=== PATIENT | female | born 1980 | race Caucasian/White ===

== ENCOUNTER 2016-05-17 14:36 | Emergency (ER) | payer SELFPAY ==
[~2016-05-17] VITALS: Ht 162.6 cm; Wt 68.0 kg
[~2016-05-17 14:36] MED LIST: CIPR250T2 PO
[2016-05-17 14:37] VITALS: BP 179/68; PULSE 98; RESP 18; TEMP 98.5; O2SAT 98
--- NOTE | 2016-05-17 16:02 | PD ---
HPI Chief Complaint: ENT Complaint Time Seen by Provider: 16:02 Travel History International Travel<30 days: No Contact w/Intl Traveler<30days: No History of Present Illness HPI 36-year-old female presents to the emergency department with complaint of sore throat that she woke up this morning. Denies fever, chills, nausea, vomiting. Denies nasal congestion, ear pain, cough. Denies lump in throat, difficulty swelling, unusual drooling. Reports painful swallowing. Reports voice is hoarse. Has not taken any medications or tried any treatments to alleviate her symptoms. No one else with similar symptoms. No known allergies. Takes Suboxone daily. Does not have an established primary care provider. No other modifying factors or associated signs and symptoms. PFSH Past Medical History Hx Anticoagulant Therapy: No Anemia: Yes Bipolar Disorder: Yes Anxiety: Yes Depression: Yes Cardiovascular Problems: No High Cholesterol: Yes Chemotherapy: No Cerebrovascular Accident: No Diabetes: No Diminished Hearing: No Hepatitis: Yes (hep c) Kidney Stones: Yes Respiratory: No Immunizations Current: Yes ?: Not LMP: 05/12/16 : 1 Para: 0 Past Surgical History Hysterectomy: No Other Surgery: Yes (bunion removed @ age 16) Social History Alcohol Use: No Tobacco Use: Yes (occassional) Substance Use: Yes (REPORTS 5-6 TIMES USE OF METH) Allergies-Medications (Allergen,Severity, Reaction): Coded Allergies: No Known Allergies (Unverified , 05/17/16) Reported Meds & Prescriptions Reported Meds & Active Scripts Active Ibuprofen 800 Mg Tab 800 Mg PO Q6HR PRN Magic Mouthwash Pediatric/Adult Liq (Lidocaine/Diphenhydr/Alum/Mg/Simeth) 60 Ml Susp 5 Ml SWISH-SWAL ACHS PRN Each 5mL contains: Diphenydramine 4.5mg, Viscous Lidocaine 2% 10mg, Maalox Advanced Regular Strength 2.7ml Ciprofloxacin Hcl (Ciprofloxacin HCl) 250 Mg Tab 250 Mg PO BID Reported Suboxone Sublingual Film (Buprenorphine-Naloxone Sublingual Film) 8-2 Mg Film 1 Film SL DAILY Unique ID number required: Review of Systems Except as stated in HPI: all other systems reviewed are Neg Physical Exam Narrative GENERAL: Well-nourished, well-developed feel patient, in no acute distress; afebrile, nontoxic-appearing SKIN: Warm and dry. No rash. HEAD: Atraumatic. Normocephalic. EYES: Pupils equal and round at 3 mm with brisk reaction. No scleral icterus. No injection or drainage. PERRLA. ENT: Mucosa pink and dry. Oropharynx with erythema; without exudate and edema. No Uvular edema. No uvular, palatal, or tonsillar deviation. Airway patent. Voice is hoarse. EARS: Bilateral pinnae and external canals appear within normal limits. Bilateral tympanic membranes without erythema, dullness or perforation.. NECK: Trachea midline. No anterior cervical lymphadenopathy; tenderness on palpation. CARDIOVASCULAR: Regular rate and rhythm. No murmur appreciated. RESPIRATORY: No accessory muscle use. Clear to auscultation. Breath sounds equal bilaterally. GASTROINTESTINAL: Abdomen soft, non-tender, nondistended. Hepatic and splenic margins not palpable. Bowel sounds are active 4 quadrants. MUSCULOSKELETAL: No obvious deformities. No clubbing. No cyanosis. No edema. NEUROLOGICAL: Awake and alert. Oriented 3. No obvious cranial nerve deficits. Motor grossly within normal limits. Normal speech. Moves all extremities. PSYCHIATRIC: Appropriate mood and affect; insight and judgment normal. Data Data Last Documented VS Vital Signs Date Time Temp Pulse Resp B/P Pulse Ox O2 Delivery O2 Flow Rate FiO2 05/17/16 14:37 98.5 98 18 179/68 98 Room Air Orders Group A Rapid Strep Screen (05/17/16 16:02) Strep Culture (Group A) (05/17/16 16:20) [facility] Medical Decision Making Medical Screen Exam Complete: Yes Emergency Medical Condition: Yes Medical Record Reviewed: Yes Differential Diagnosis Viral pharyngitis, laryngitis, strep throat pharyngitis, less likely peritonsillar abscess Narrative Course 36-year-old female with sore throat. Afebrile, nontoxic appearing. Denies fever, chills, nausea, vomiting at home. Denies lump in throat, difficulty swallowing, unusual drooling. Denies cough. Rapid strep ordered. 1658: Patient wanted to leave prior to rapid strep results. She said she doesn 't think she has strep throat. She thinks her symptoms are related to yelling a lot last night and that she only wanted a work note. Patient discharged home at this time. Patient is medically cleared and stable for discharge. Discussed reasons to return to the emergency department. Instructed patient to follow up with primary care provider. Patient agrees with treatment plan. The patients vital signs are stable and the patient is stable for outpatient follow- up and treatment. Patient discharged home, stable and in no acute distress. Diagnosis Primary Impression: Viral pharyngitis Referrals: Primary Care Physician Patient Instructions: General Instructions, Pharyngitis (ED) Departure Forms: Tests/Procedures, Work Release Enter return to work date: May 18, 2016 Additional Instructions: Get plenty of sleep/rest Rest your voice Drink plenty of fluids to prevent dehydration Use warm saltwater gargles to soothe throat pain Use an air humidifier/turn off ceiling fans Use throat lozenges as needed for sore throat Use ibuprofen or acetaminophen as needed to relieve pain and fever Follow-up with your primary care provider within 2-4 days Return immediately to the emergency department with worsening of symptoms Med/Other Pt SpecificInfo: Prescription(s) given Scripts Ibuprofen 800 Mg [id number] Mg PO Q6HR PRN (PAIN) #30 TAB Ref 0 Prov:Angi Gamino 05/17/16 Wsnrgkrrcopdjxp-Dfzeeobbe-Oim-Alum-Simeth Liq (Magic Mouthwash Pediatric/Adult Liq)60 Ml Susp5 Ml SWISH-SWAL ACHS PRN (SORE THROAT) #60 ML Ref 0 Each 5mL contains: Diphenydramine 4.5mg, Viscous Lidocaine 2% 10mg, Maalox Advanced Regular Strength 2.7ml Prov:Angi Gamino 05/17/16 Disposition: 01 DISCHARGE HOME Condition: Stable Angi Gamino May 17, 2016 16:02
[2016-05-17] MEDS ORDERED: IBUP800T23 PO (16:04)
[2016-05-17] MEDS ORDERED: MAGICPED SWISH-SWAL (16:04)
[2016-05-17] MEDS ORDERED: SUBO8MIS SL (16:30)
== END 2016-05-17 17:02 | disposition home or self-care (01) ==
LOC: NEPB 14:36
DX: J02.9 Acute pharyngitis, unspecified (principal); B97.89 Other viral agents as the cause of diseases classified elsewhere; E78.00 Pure hypercholesterolemia, unspecified; Z72.0 Tobacco use; Z86.2 Personal history of diseases of the blood and blood-forming organs and certain disorders involving the immune mechanism; Z86.59 Personal history of other mental and behavioral disorders; Z86.19 Personal history of other infectious and parasitic diseases; Z87.442 Personal history of urinary calculi
CPT/HCPCS: 87081; 87880; 99283

== ENCOUNTER 2016-08-22 19:14 | Emergency (ER) | payer OTHER ==
[~2016-08-22] VITALS: Ht 162.6 cm; Wt 76.0 kg
[~2016-08-22 19:14] MED LIST changes: +IBUP800T23 PO; +MAGICPED SWISH-SWAL; +SUBO8MIS SL
[2016-08-22 19:16] VITALS: BP 139/74; PULSE 88; RESP 16; TEMP 98.4; O2SAT 98
--- NOTE | 2016-08-22 20:43 | PD ---
HPI Chief Complaint: Related Problem Time Seen by Provider: 20:43 Travel History International Travel<30 days: No Contact w/Intl Traveler<30days: No Traveled to known affect area: No History of Present Illness HPI 36-year-old female came to the emergency room with history of vaginal bleed since yesterday. says she has been spotting and it's getting more in attendance. Patient is and her LMP was July 10. She has not had any ultrasound to confirm any neutral yet. Patient is A1. Her first was ectopic. No history of vomiting or diarrhea. Vital signs otherwise stable. She does not appear to be in any severe discomfort. [facility] Past Medical History Narrative Medical List of her past medical, surgical, social and family history reviewed from the nursing note. Hx Anticoagulant Therapy: No Anemia: Yes Bipolar Disorder: Yes Anxiety: Yes Depression: Yes Cardiovascular Problems: No High Cholesterol: Yes Chemotherapy: No Cerebrovascular Accident: No Diabetes: No Diminished Hearing: No Hepatitis: Yes (hep c) Kidney Stones: Yes Respiratory: No Immunizations Current: Yes Tetanus Vaccination: Unknown Influenza Vaccination: No ?: LMP: 5-6 WEEKS : 1 Para: 0 Past Surgical History Hysterectomy: No Other Surgery: Yes (bunion removed @ age 16) Social History Alcohol Use: No Tobacco Use: Yes (occassional) Substance Use: Yes (REPORTS 5-6 TIMES USE OF METH) Allergies-Medications (Allergen,Severity, Reaction): Coded Allergies: No Known Allergies (Unverified , 08/22/16) Comments No known drug allergies. Reported Meds & Prescriptions Reported Meds & Active Scripts Active Vitamins 0.8 mg ( Multivit-Min W/Fe-FA) 1 Tab Tab 1 Tab PO DAILY 30 Days Reported Suboxone Sublingual Film (Buprenorphine-Naloxone Sublingual Film) 8-2 Mg Film 1 Film SL DAILY Unique ID number required: Narrative Medication List of her home medications reviewed from the nursing note. Review of Systems Except as stated in HPI: all other systems reviewed are Neg Physical Exam Narrative GENERAL: Awake, alert, no obvious distress SKIN: Focused skin assessment warm/dry. HEAD: Atraumatic. Normocephalic. EYES: Pupils equal and round. No scleral icterus. No injection or drainage. ENT: No nasal bleeding or discharge. Mucous membranes pink and moist. NECK: Trachea midline. No JVD. CARDIOVASCULAR: Regular rate and rhythm. No murmur appreciated. RESPIRATORY: No accessory muscle use. Clear to auscultation. Breath sounds equal bilaterally. GASTROINTESTINAL: Abdomen soft, non-tender, nondistended. Hepatic and splenic margins not palpable. MUSCULOSKELETAL: No obvious deformities. No clubbing. No cyanosis. No edema. NEUROLOGICAL: Awake and alert. No obvious cranial nerve deficits. Motor grossly within normal limits. Normal speech. PSYCHIATRIC: Appropriate mood and affect; insight and judgment normal. Data Data Last Documented VS Vital Signs Date Time Temp Pulse Resp B/P Pulse Ox O2 Delivery O2 Flow Rate FiO2 08/22/16 20:32 16 08/22/16 19:16 98.4 88 139/74 98 Orders Beta Hcg (Quant/Titer) (08/22/16 21:47) Complete Blood Count With Diff (08/22/16 21:47) Basic Metabolic Panel (Bmp) (08/22/16 21:47) Complete Rh (08/22/16 21:47) Ua Includes Microscopic (08/22/16 21:47) Ed Urine Pregnancytest Poc (08/22/16 21:47) Rhogam Only (08/23/16 00:23) Blood Product Administration .UPON TRANSFUSION (08/23/16 00:23) Sodium Chlor 0.9% 250 Ml Inj (Ns 250 Ml (08/23/16 00:30) Labs Laboratory Tests Test 08/22/16 08/22/16 08/23/16 21:45 22:30 00:23 White Blood Count 9.8 TH/MM3 Red Blood Count 4.49 MIL/MM3 Hemoglobin 13.7 GM/DL Hematocrit 40.0 % Mean Corpuscular Volume 88.9 FL Mean Corpuscular Hemoglobin 30.5 PG Mean Corpuscular Hemoglobin 34.3 % Concent Red Cell Distribution Width 13.3 % Platelet Count 281 TH/MM3 Mean Platelet Volume 7.6 FL Neutrophils (%) (Auto) 65.9 % Lymphocytes (%) (Auto) 25.2 % Monocytes (%) (Auto) 6.2 % Eosinophils (%) (Auto) 1.9 % Basophils (%) (Auto) 0.8 % Neutrophils # (Auto) 6.4 TH/MM3 Lymphocytes # (Auto) 2.5 TH/MM3 Monocytes # (Auto) 0.6 TH/MM3 Eosinophils # (Auto) 0.2 TH/MM3 Basophils # (Auto) 0.1 TH/MM3 CBC Comment DIFF FINAL Differential Comment Urine Color RED Urine Turbidity HAZY Urine pH 5.5 Urine Specific [place] 1.021 Urine Protein 30 mg/dL Urine Glucose (UA) NEG mg/dL Urine Ketones NEG mg/dL Urine Occult Blood LARGE Urine Nitrite NEG Urine Bilirubin NEG Urine Urobilinogen LESS THAN 2.0 MG/DL Urine Leukocyte Esterase MOD Urine RBC /hpf Urine WBC 128 /hpf Urine WBC Clumps FEW Urine Squamous Epithelial 9 /hpf Cells Urine Bacteria OCC /hpf Urine Mucus FEW /lpf Sodium Level 138 MEQ/L Potassium Level 3.5 MEQ/L Chloride Level 103 MEQ/L Carbon Dioxide Level 28.0 MEQ/L Anion Gap 7 MEQ/L Blood Urea Nitrogen 14 MG/DL Creatinine 0.77 MG/DL Estimat Glomerular Filtration 84 ML/MIN Rate Random Glucose 80 MG/DL Calcium Level 8.5 MG/DL Human Chorionic Gonadotropin, 1743 MIU/ML Quant Blood Type O NEGATIVE Rho(D) Type NEGATIVE Blood Bank Comment MDM Medical Decision Making Medical Screen Exam Complete: Yes Emergency Medical Condition: Yes Medical Record Reviewed: Yes Differential Diagnosis Ectopic , threatened , implantation bleed Narrative Course 11:17 PM the bedside ultrasound was difficult but I was able to see and in the uterine . UA is positive for UTI. I'll give her dose of Macrobid. Her beta hCG Quant is low. Under the circumstances I will ask her to return in 48 hours to get the beta-hCG rechecked. Patient understands this plan. She'll be discharged home. 12:24 AM blood type was O-. Patient is given a dose of RhoGAM. Procedures Procedure Narrative Emergency Department Pelvic ultrasound was performed with patient consent. The curvilinear probe was used in the transverse and sagittal views within the suprapubic region revealing positive intrauterine . Only a gestational sac could be seen but no pole or heart beat. EKG Prior to Arrival: No Diagnosis Primary Impression: Threatened Additional Impressions: Vaginal bleeding First trimester Referrals: Primary Care Physician Additional Instructions: Please return to the ER in 48 hours to get repeat hCG count. No vaginal intercourse, tampon, douching or anything in the vagina until the bleeding stops. Drink lots of fluid. Do not lift anything heavy. Return to the ER earlier if symptoms worsen or any other new concerns. Med/Other Pt SpecificInfo: Prescription(s) given Scripts Multivit-Min W/Fe-FA ( Vitamins 0.8 mg)1 Tab Tab1 Tab PO DAILY 30 Days Prov:Katherine Young MD 08/22/16 Disposition: 01 DISCHARGE HOME Condition: Stable Katherine Young MD Aug 22, 2016 20:43
[2016-08-22 22:13] LABS: AUTOMATED NEUTROPHIL # 6.4 TH/MM3 (1.8-7.7); BASOPHIL # 0.1 TH/MM3 (0-0.2); BASOPHIL % 0.8 % (0.0-2.0); EOSINOPHIL # 0.2 TH/MM3 (0-0.4); EOSINOPHIL % 1.9 % (0.0-4.0); HEMO FLAGS DIFF FINAL; LYMPH % 25.2 % (9.0-44.0); LYMPHOCYTE # 2.5 TH/MM3 (1.0-4.8); MEAN CELL VOLUME 88.9 FL (80.0-100.0); MEAN CORPUSCULAR HEMOGLOBIN 30.5 PG (27.0-34.0); MEAN CORPUSCULAR HGB CONC 34.3 % (32.0-36.0); MONO % 6.2 % (0.0-8.0); NEUT % 65.9 % (16.0-70.0); PLATELET COUNT 281 TH/MM3 (150-450); RED BLOOD COUNT 4.49 MIL/MM3 (4.00-5.30); RED CELL DISTRIBUTION WIDTH 13.3 % (11.6-17.2); WHITE BLOOD COUNT 9.8 TH/MM3 (4.0-11.0)
[2016-08-22 22:21] LABS: BACTERIA, URINE OCC /hpf; BLOOD, URINE LARGE (NEG); GLUCOSE,URINE NEG (NEG); KETONE, URINE NEG (NEG); MUCUS URINE FEW /lpf (OCC); NITRITE,URINE NEG (NEG); PH, URINE 5.5 (5.0-8.5); SQUAMOUS EPITHELIAL CELL URINE 9 /hpf (0-5)
[2016-08-22 22:22] LABS: URINE COLOR RED (YELLW/STRAW)
[2016-08-22 22:46] LABS: POTASSIUM 3.5 MEQ/L (3.5-5.1)
[2016-08-22] MEDS ORDERED: PREN1TAB63 PO (23:22)
[2016-08-23] MEDS ORDERED: SODIUM CHLOR 0.9% 250 ML INJ 250 ML IV ONE (00:30)
== END 2016-08-23 01:00 | disposition home or self-care (01) ==
LOC: NEPD 19:14
DX: O20.0 Threatened abortion (principal); O26.851 Spotting complicating pregnancy, first trimester
CPT/HCPCS: 80048; 81001; 84702; 84703; 85025; 86901; 90384; 96372; J2790

== ENCOUNTER 2016-08-25 17:33 | Emergency (ER) | payer OTHER ==
[~2016-08-25 17:33] MED LIST changes: -CIPR250T2 PO; -IBUP800T23 PO; -MAGICPED SWISH-SWAL; +PREN1TAB63 PO
[2016-08-25 17:35] VITALS: BP 135/79; PULSE 97; RESP 20; TEMP 97.9; O2SAT 98
--- NOTE | 2016-08-25 18:16 | PD ---
HPI Chief Complaint: Related Problem Time Seen by Provider: 17:58 Travel History International Travel<30 days: No Contact w/Intl Traveler<30days: No Traveled to known affect area: No History of Present Illness HPI 36-year-old female complains of vaginal bleeding. Patient is 2 para 0 AB 1. Last menstruation period was July 10, 2016. Patient was seen in emergency room 3 days ago for pelvic pain and vaginal bleeding. Blood type was O-. Beta hCG 1743. Bedside ultrasound showed intrauterine . UA was positive for UTI. Patient was advised to have been beta hCG repeated in 48 hours. Patient states that she has intermittent pelvic pain and vaginal bleeding for the past several days. Patient states that she passed big blood clot today. Patient denies any pelvic pain. Patient denies any headache. Patient denies any chest pain or shortness of breath. Patient denies abdominal pain or pelvic pain. Patient denies any fever chills. Patient was given RhoGAM at last visit. PFSH Past Medical History Hx Anticoagulant Therapy: No Anemia: Yes Bipolar Disorder: Yes Anxiety: Yes Depression: Yes Cardiovascular Problems: No High Cholesterol: Yes Chemotherapy: No Cerebrovascular Accident: No Diabetes: No Diminished Hearing: No Hepatitis: Yes (hep c) Kidney Stones: Yes Respiratory: No Immunizations Current: Yes ?: Unknown LMP: end of June : 1 Para: 0 Past Surgical History Hysterectomy: No Other Surgery: Yes (bunion removed @ age 16) Social History Alcohol Use: No Tobacco Use: No Substance Use: No Allergies-Medications (Allergen,Severity, Reaction): Coded Allergies: No Known Allergies (Unverified , 08/22/16) Reported Meds & Prescriptions Reported Meds & Active Scripts Active Vitamins 0.8 mg ( Multivit-Min W/Fe-FA) 1 Tab Tab 1 Tab PO DAILY 30 Days Reported Suboxone Sublingual Film (Buprenorphine-Naloxone Sublingual Film) 8-2 Mg Film 1 Film SL DAILY Unique ID number required: Review of Systems General / Constitutional: No: Fever Eyes: No: Visual changes HENT: No: Headaches Cardiovascular: No: Chest Pain or Discomfort Respiratory: No: Shortness of Breath Gastrointestinal: No: Abdominal Pain Genitourinary: Positive: Vaginal Bleeding, No: Dysuria Musculoskeletal: No: Pain Skin: No Rash Neurologic: No: Weakness Psychiatric: No: Depression Endocrine: No: Polydipsia Hematologic/Lymphatic: No: Easy Bruising Physical Exam Narrative GENERAL: Well-nourished, well-developed patient. SKIN: Focused skin assessment warm/dry. HEAD: Normocephalic. EYES: No scleral icterus. No injection or drainage. NECK: Supple, trachea midline. No JVD or lymphadenopathy. CARDIOVASCULAR: Regular rate and rhythm without murmurs, gallops, or rubs. RESPIRATORY: Breath sounds equal bilaterally. No accessory muscle use. GASTROINTESTINAL: Abdomen soft, non-tender, nondistended. MUSCULOSKELETAL: No cyanosis, or edema. BACK: Nontender without obvious deformity. No CVA tenderness. INTERNET ASSESSOR exam: Patient has small amount of blood in the vaginal vault. No cervical motion tenderness. Uterus is nonenlarged with mild tenderness on palpation. No adnexal mass or tenderness. Data Data Last Documented VS Vital Signs Date Time Temp Pulse Resp B/P Pulse Ox O2 Delivery O2 Flow Rate FiO2 08/25/16 17:35 97.9 97 20 135/79 98 Room Air Orders Beta Hcg (Quant/Titer) (08/25/16 18:08) Iv Access Insert/Monitor (08/25/16 18:08) Urinalysis - C+S If Indicated (08/25/16 18:14) Us Pelvis (Ques Pr/Ect)W Trans (08/25/16 19:41) Urine Culture (08/25/16 19:00) Labs Laboratory Tests Test 08/25/16 08/25/16 18:20 19:00 Human Chorionic Gonadotropin, 1528 MIU/ML Quant Urine Color YELLOW Urine Turbidity CLEAR Urine pH 6.0 Urine Specific [place] 1.022 Urine Protein 30 mg/dL Urine Glucose (UA) NEG mg/dL Urine Ketones NEG mg/dL Urine Occult Blood LARGE Urine Nitrite NEG Urine Bilirubin NEG Urine Urobilinogen LESS THAN 2.0 MG/DL Urine Leukocyte Esterase MOD Urine RBC /hpf Urine WBC 10 /hpf Urine Squamous Epithelial 11 /hpf Cells Urine Bacteria OCC /hpf Microscopic Urinalysis Comment CULTURE INDICATED MDM Medical Decision Making Medical Screen Exam Complete: Yes Emergency Medical Condition: Yes Interpretation(s) 1939 PM. Beta hCG today 1528. Beta hCG 2 days ago with 1743. 2018 p.m. UA positive RBC, WBC and bacteria. 22:05 PM. Last Impressions Pelvis Ultrasound 08/25/161940 Signed Impressions: Service Date/Time: Thursday, August 25, 2016 21:01 - CONCLUSION: 1. Intrauterine but without evidence for heart rate. [place]-rump length measurements are characteristic of a 6 week 6 day gestation. Kamran Manuel MD Differential Diagnosis Differential diagnosis includes threatened AB, incomplete AB, completed AB, ectopic . Narrative Course 36-year-old female with vaginal bleeding. Patient was seen in emergency room 3 days ago pelvic pain and vaginal bleeding. Patient's blood type O-. Patient received RhoGAM 2 days ago. Diagnosis Primary Impression: Incomplete Patient Instructions: General Instructions Additional Instructions: Follow-up with local INTERNET ASSESSOR. Return if increased pelvic pain, excessive vaginal bleeding. Med/Other Pt SpecificInfo: No Change to Meds Scripts Acetaminophen-Codeine (Tylenol-Codeine #3)300-30 mg Tab1 Tab PO Q6HR PRN (PAIN SCALE 1 TO 10) #30 TAB Prov:Simon Pickering MD 08/25/16 Disposition: 01 DISCHARGE HOME Condition: Stable Simon Pickering MD Aug 25, 2016 18:16
[2016-08-25 19:27] LABS: BETA HCG QUANT 1528 MIU/ML (0-5)
[2016-08-25 19:50] LABS: BACTERIA, URINE OCC /hpf; BLOOD, URINE LARGE (NEG); COMMENT (UR) CULTURE INDICATED; CULTURE IF INDICATED CULTURE INDICATED; GLUCOSE,URINE NEG (NEG); KETONE, URINE NEG (NEG); NITRITE,URINE NEG (NEG); SQUAMOUS EPITHELIAL CELL URINE 11 /hpf (0-5); URINE COLOR YELLOW (YELLW/STRAW)
--- NOTE | 2016-08-25 21:55 | RADRPT ---
EXAM DATE/TIME: 08/25/2016 21:01 [facility] COMPARISON: No previous studies available for comparison. INDICATIONS : Bleeding with . LAB(S): Beta-hC MEDICAL HISTORY : . Hypercholesterolemia. Renal calculi. Previous ectopic. Bipolar disorder. Depression. Anxie ty. Hepatitis C. Anemia. SURGICAL HISTORY : Bunionectomy. ENCOUNTER: Initial ACUITY: 3 days PAIN SCORE: 0/10 LOCATION: Bilateral pelvis MEASUREMENTS: UTERUS: 8.9 x 5.9 x 5.0 cm ENDOMETRIAL STRIPE: >20 mm RIGHT OVARY: 2.4 x 1.7 x 1.0 cm LEFT OVARY: 3.1 x 2.0 x 1.7 cm FREE FLUID: No CROWN RUMP LENGTH: 0.91 cm = 6 WKS 6 DAYS FHR: Non visualized. BPM FINDINGS: There is an intrauterine with [place]-rump length measurements characteristic of a 6 week 6 d ay gestation the gestational sac size measurements characteristic of a five-week two-day . T here is no identifiable heart rate. [place] is visualized. No free fluid Right ovary is unremarkable. Probable 2 cm corpus luteum cyst left ovary. CONCLUSION: 1. Intrauterine but without evidence for heart rate. [place]-rump length measurements a re characteristic of a 6 week 6 day gestation. Kamran Manuel MD on August 25, 2016 at 21:47 Board Certified Radiologist. This report was verified electronically.
[2016-08-25] MEDS ORDERED: TYLETAB34 PO (22:10)
[2016-08-25 22:24] VITALS: BP 150/95
== END 2016-08-25 22:33 | disposition home or self-care (01) ==
LOC: NEPD 17:33
DX: O03.4 Incomplete spontaneous abortion without complication (principal); E78.00 Pure hypercholesterolemia, unspecified; Z87.442 Personal history of urinary calculi; B19.20 Unspecified viral hepatitis C without hepatic coma
CPT/HCPCS: 76700; 76817; 81001; 84702; 87086; 99284